=== PATIENT | female | born 1990 | race Caucasian/White ===

== ENCOUNTER → 2023-08-20 09:51 | Outpatient (REF) | payer BC, SELFPAY | LOC: RAD 09:51 | PROVIDERS: ATTENDING PHYSICIAN Nurse Practitioner Family | DX: M25.522 Pain in left elbow (principal) | CPT/HCPCS: 73080 ==

== ENCOUNTER → 2024-09-10 10:45 | Outpatient (REF) | payer BC, SELFPAY | LOC: EMG 10:45 | PROVIDERS: ATTENDING PHYSICIAN Orthopaedic Surgery Hand Surgery; FAMILY PHYSICIAN Nurse Practitioner Family | DX: M25.521 Pain in right elbow (principal); R20.0 Anesthesia of skin | CPT/HCPCS: 95886; 95909 ==